=== PATIENT | female | born 1985 | race Caucasian/White ===

== ENCOUNTER 2017-01-24 20:31 | Inpatient (IN) | payer OTHER ==
[~2017-01-24] VITALS: Ht 162.6 cm; Wt 92.5 kg
[2017-01-25] VITALS (10 sets, daily range): BP systolic 88–125; BP diastolic 50–66
--- NOTE | 2017-01-25 09:43 | History & Physical Report ---
Admission Admit Date 01/24/17 Information Source Information Source: Self Reliability: Good History Chief Complaint Labor History of Present Illness 31 yo at 38+4 with c/o regular uterine contractions every 2-6 min since 7 pm. She reports contractions off and on all day. No loss of fluid or vaginal bleeding. Good FM. Patient History 1. Spontaneous onset of labor Social History Negative for tobacco, alcohol, drugs Advance Directive None Medications and Allergies Medications Current Medications Sig/Braeden Start time Last Medication Dose Route Stop Time Status Admin Influenza Virus 0.5 ML 0900 01/26 0900 AC Vaccine IM 01/26 1800 Ephedrine Sulfate 10 MG Q2H PRN 01/25 0730 AC IV Calcium Carbonate 500 MG Q4H PRN 01/25 0230 AC PO Fentanyl/Bupivacaine See Dose TITRATE 01/25 0230 AC HCl Insts (1) EPID Lactated Ringer's 1,000 ML ASDIRECTED 01/25 0230 AC IV Lidocaine HCl 5 ML PRN PRN 01/25 0230 AC TOP Morphine Sulfate 4 MG Q4H PRN 01/25 0230 AC IV Ondansetron HCl 4 MG Q4H PRN 01/25 0230 AC IV Promethazine HCl 12.5 MG Q4H PRN 01/25 0230 AC IV Dose Instructions: (1)Fentanyl/Bupivacaine HCl: ADJUSTMENTS PER ANESTHESIA Allergies Coded Allergies: No Known Drug Allergy (06/04/10) Uncoded Allergies: Med Allergies: NKA Review of Systems Constitutional Denies: Fever, Chills, Sweats, Weakness, Malaise. Gastrointestinal Abdominal Pain. Denies: Nausea, Vomiting. Genitourinary Denies: Dysuria, Frequency, Incontinence. OB - Admission Exam Physical Exam Vitals: Vital Signs Date Time Temp Pulse Resp B/P Pulse O2 O2 Flow FiO2 Ox Delivery Rate 01/24 2224 Room Air HEENT: Normocephalic, atraumatic Heart: Rhythm Normal Lung Sounds: Clear Abdomen: Gravid Extremities: Edema Reflexes: Normal Cervical Dilatation: 4 cm Effacement: 75% Station: -2 Membranes: Intact Amniotic Fluid: Unevaluable Accelerations: Accelerations Present Decelerations: No Decelerations Short Term Variability: Present [facility] Variability: Average (6-25) Contractions on Admission: <5 Minutes Apart Date/Time Contractions Began: 01/24/17 7:00pm Frequency of Contractions: 2-6 min Physical Exam Vital Signs / I&Os Vital Signs Date Time Temp Pulse Resp B/P Pulse O2 O2 Flow FiO2 Ox Delivery Rate 01/25 2224 Room Air I&O 01/25 0000 01/24 1600 01/24 0800 Intake Total Output Total Balance Assessment and Plan Problem List 1. Spontaneous onset of labor Status Acute Onset Date 01/24/17 Plan 1. Expectant managment of labor 2. Allow to SROM as <39 weeks 3. GBS negative 4. May augment with pitocin if needed after SROM
--- NOTE | 2017-01-25 12:52 | Progress Note ---
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 Pushing. Assessment and Plan Problem List 1. Spontaneous onset of labor Status Acute Onset Date 01/24/17 Plan Anticipate . She paper chart for delivery note.
[2017-01-26 00:25] VITALS: BP 92/55
[2017-01-26 07:30] VITALS: BP 99/57
[2017-01-26] MEDS ORDERED: FERROUS SULFAT325 M1 PO (08:47)
[2017-01-26] MEDS ORDERED: IBUPROFEN600 MG PO ×2 (08:47→08:52)
[2017-01-26] MEDS ORDERED: COLACE100 MG PO (08:48)
[2017-01-26] MEDS ORDERED: PRENATAL VITAMINS PO (08:49)
--- NOTE | 2017-01-26 08:51 | Provider's Discharge Care Plan ---
Problem, Goal, Plan Problem List 1. Normal vaginal delivery Instructions: Follow up as needed, Take meds as directed
--- NOTE | 2017-01-26 08:51 | Provider's Discharge Care Plan ---
Problem, Goal, Plan Problem List 1. Normal vaginal delivery Instructions: Follow up as needed, Take meds as directed
--- NOTE | 2017-01-26 08:53 | Progress Note ---
Subjective General PPD #1 s/p at noon yesterday. Denies pain. Reports vaginal bleeding is minimal. Tolerating PO. Ambulating and voiding. Constitutional Denies: Fever, Weakness. ENT Other. Respiratory Denies: Cough. Cardiovascular Denies: Chest Pain. Gastrointestinal Denies: Nausea, Vomiting, Abdominal Pain. Genitourinary Denies: Dysuria. Neurological Denies: Weakness, Numbness. Physical Exam Vital Signs / I&Os Vital Signs Date Time Temp Pulse Resp B/P Pulse O2 O2 Flow FiO2 Ox Delivery Rate 01/26 0800 Room Air 01/26 0730 97.9 82 18 99/57 01/26 0025 Room Air 01/26 0025 98.6 94 16 92/55 01/25 1700 Room Air 01/25 1700 98.2 96 16 88/50 01/25 1345 98.4 80 18 106/66 01/25 1335 88 18 125/57 I&O 01/26 0000 01/25 1600 01/25 0800 Intake Total 2500 Output Total 850 Balance 1650 General Appearance Alert, Oriented X3, No acute distress HEENT Normal exam, Atraumatic Lungs Normal exam Cardiovascular Normal exam Abdomen fundus firm at umbilicus Pelvic laceration without redness or swelling Extremities No cyanosis, No clubbing Assessment and Plan Problem List 1. Normal vaginal delivery Plan Normal exam following vaginal delivery. Patient desires d/c home.
--- NOTE | 2017-01-26 13:00 | NUR ---
Pt, given DC instructions & F/U Infos & prescriptions for Ibuprofen & DSS. Pt indicated understood. All papers turned in. Pt dc'd home with her baby and her accompanied by, Hospital escort via ambulatory done noted.
== END 2017-01-26 15:06 | disposition home or self-care (01) | DRG 560 ==
LOC: OBC SRH 20:31 → OB SRH 20:33 → OBC SRH 01-25 07:30 → OB SRH 01-25 07:30
PROVIDERS: ADMIT Obstetrics & Gynecology
PROC: 10E0XZZ Delivery of Products of Conception, External Approach (ICD-10-PCS; principal; 2017-01-25)
PROC: 0HQ9XZZ Repair Perineum Skin, External Approach (ICD-10-PCS; principal; 2017-01-25)
PROC: 3E0234Z Introduction of Serum, Toxoid and Vaccine into Muscle, Percutaneous Approach (ICD-10-PCS; 2017-01-26)
DX: O70.0 First degree perineal laceration during delivery (principal); Z3A.38 38 weeks gestation of pregnancy; Z37.0 Single live birth; Z23 Encounter for immunization

== ENCOUNTER 2017-01-29 21:59 | Emergency (ER) | payer OTHER ==
[~2017-01-29 21:59] MED LIST: COLACE100 MG PO; FERROUS SULFAT325 M1 PO; IBUPROFEN600 MG PO; PRENATAL VITAMINS PO
--- NOTE | 2017-01-29 23:17 | ED NURSING NOTES ---
Clinical Report - Nurses [place] [address] [place] [address] 01/29/2017 21:58 [id number] Triage time 22:Jan 29 2017. Acuity: LEVEL 3. Chief Complaint: (swelling of legs and feet ()). LEXI COMA SCORE: [place] Coma Scale: 15- eyes open spontaneously (4); best verbal response- oriented x 4 (5); best motor response- obeys commands (6). --22:11 Kell Burger 22:06 01/29/17. BP: 112/67. HR: 69. RR: 20. O2 saturation: 97% on room air. Temp: 97.7 F (oral). Pain level now: 0/10. --22:11 Kell Burger. Weight: 83.9 kg estimated. Height/Length: 64 inches Per Patient. BMI: 31.8. --22:09 Kell Burger. Medications None. --22:08 Kell Burger. Medication/allergy information source: the patient. --22:11 Kell Burger. Allergies No Known Drug Allergy. --22:08 Kell Burger. History Arrived by private vehicle. Historian: patient. Accompanied by family. This started today. ( Patient reports she gave to her child on Thursday. She reports today she noticed swelling legs and feet. She denies pain. She denies any shortness of breath. She denies any swelling with her previous pregnancies.). PAST MEDICAL HX: Immunizations: up-to-date. The patient is lactating. SOCIAL HX: Never smoker. No alcohol use. No infectious disease exposure. ABUSE ASSESSMENT: No report of abuse. FALL RISK ASSESSMENT: Fall risk assessment completed. No fall risk identified. NUTRITIONAL RISK ASSESSMENT: The nutritional risk assessment revealed no deficiencies. FUNCTIONAL ASSESSMENT: Functional assessment: no impairments noted. LEARNING NEEDS ASSESSMENT: The learning needs assessment revealed no barriers. SKIN INTEGRITY ASSESSMENT: Skin integrity risk assessment completed. No skin integrity risk identified. --22:11 Kell Burger. PROBLEMS: no known problems. ADDITIONAL SURGERIES: no known surgeries. Interventions ID band on patient. To treatment room. --22:11 Kell Burger. PHYSICAL ASSESSMENT Ambulatory to room. Patient gowned. GENERAL / NEURO / PSYCH: Alert. Oriented X 4. Appears in no acute distress. HEENT: Pupils equal, round and reactive to light. Mucous membranes are pink. RESPIRATORY: Respirations not labored. CVS: Normal sinus rhythm noted. Pulses within normal limits. GI / : Abdomen soft. EXTREMITIES: Bilateral 2+ pitting edema of the lower extremities involving both feet and both ankles. Capillary refill is less than 2 seconds in the extremities. Extremities exhibit normal ROM. SKIN: Skin is warm and dry. --22:12 Kell Burger. NURSING PROGRESS NOTES Pulse oximeter and NIBP monitor placed on patient; monitor alarms on. Patient gowned. Reassurance given to the patient. Two patient identifiers checked. Call light placed in reach. Side rails up x 1. Bed placed in lowest position. Brakes of bed on. Patient ready for evaluation- chart flagged and ED physician notified. --22:13 Kell Burger ( Light dimmed, patient has no complaints at this time). --23:15 Kell Burger 23:15 01/29/17. BP: 101/64. HR: 68. RR: 20. O2 saturation: 98% on room air. --23:15 Kell Burger. DISPOSITION / DISCHARGE 23:25 01/29/17. BP: 101/64. HR: 62. RR: 16. O2 saturation: 98% on room air. Temp: 98.7 F (oral). Pain level now: 0/10. --00:05 Keaton Cabrera R.N. Departure time: 2329. --00:06 Keaton Cabrera RElda. 23:30. Condition at departure: unchanged. No learning barriers present. Discharge instructions provided and reviewed with the patient. Treatments reviewed (Elevate your lower extremities when ever you can on pillows). Reviewed referral to family practice for followup. Patient verbalized understanding. Written instructions provided in Syriac. The patient was discharged by the physician. She was discharged home and accompanied by social science manager. She left the Emergency Department ambulatory and via private vehicle. Electric Organ Inspector And Repairer driving. --00:08 Keaton Cabrera R.N. Locked/Released at 01/30/2017 0:09 by Keaton Cabrera R.N.
--- NOTE | 2017-01-29 23:17 | ED NURSING NOTES ---
Clinical Report - Nurses [place] [address] [place] [address] 01/29/2017 21:58 [id number] TRI[facility] Triage time 22:Jan 29 2017. Acuity: LEVEL 3. Chief Complaint: (swelling of legs and feet ()). LEXI COMA SCORE: [place] Coma Scale: 15- eyes open spontaneously (4); best verbal response- oriented x 4 (5); best motor response- obeys commands (6). --22:11 Kell Burger 22:06 01/29/17. BP: 112/67. HR: 69. RR: 20. O2 saturation: 97% on room air. Temp: 97.7 F (oral). Pain level now: 0/10. --22:11 Kell Burger. Weight: 83.9 kg estimated. Height/Length: 64 inches Per Patient. BMI: 31.8. --22:09 Kell Burger. Medications None. --22:08 Kell Burger. Medication/allergy information source: the patient. --22:11 Kell Burger. Allergies No Known Drug Allergy. --22:08 Kell Burger. History Arrived by private vehicle. Historian: patient. Accompanied by family. This started today. ( Patient reports she gave to her child on Thursday. She reports today she noticed swelling legs and feet. She denies pain. She denies any shortness of breath. She denies any swelling with her previous pregnancies.). PAST MEDICAL HX: Immunizations: up-to-date. The patient is lactating. SOCIAL HX: Never smoker. No alcohol use. No infectious disease exposure. ABUSE ASSESSMENT: No report of abuse. FALL RISK ASSESSMENT: Fall risk assessment completed. No fall risk identified. NUTRITIONAL RISK ASSESSMENT: The nutritional risk assessment revealed no deficiencies. FUNCTIONAL ASSESSMENT: Functional assessment: no impairments noted. LEARNING NEEDS ASSESSMENT: The learning needs assessment revealed no barriers. SKIN INTEGRITY ASSESSMENT: Skin integrity risk assessment completed. No skin integrity risk identified. --22:11 Kell Burger. PROBLEMS: no known problems. ADDITIONAL SURGERIES: no known surgeries. Interventions ID band on patient. To treatment room. --22:11 Kell Burger. PHYSICAL ASSESSMENT Ambulatory to room. Patient gowned. GENERAL / NEURO / PSYCH: Alert. Oriented X 4. Appears in no acute distress. HEENT: Pupils equal, round and reactive to light. Mucous membranes are pink. RESPIRATORY: Respirations not labored. CVS: Normal sinus rhythm noted. Pulses within normal limits. GI / : Abdomen soft. EXTREMITIES: Bilateral 2+ pitting edema of the lower extremities involving both feet and both ankles. Capillary refill is less than 2 seconds in the extremities. Extremities exhibit normal ROM. SKIN: Skin is warm and dry. --22:12 Kell Burger. NURSING PROGRESS NOTES Pulse oximeter and NIBP monitor placed on patient; monitor alarms on. Patient gowned. Reassurance given to the patient. Two patient identifiers checked. Call light placed in reach. Side rails up x 1. Bed placed in lowest position. Brakes of bed on. Patient ready for evaluation- chart flagged and ED physician notified. --22:13 Kell Burger ( Light dimmed, patient has no complaints at this time). --23:15 Kell Burger 23:15 01/29/17. BP: 101/64. HR: 68. RR: 20. O2 saturation: 98% on room air. --23:15 Kell Burger. DISPOSITION / DISCHARGE 23:25 01/29/17. BP: 101/64. HR: 62. RR: 16. O2 saturation: 98% on room air. Temp: 98.7 F (oral). Pain level now: 0/10. --00:05 Keaton Cabrera R.N. Departure time: 2329. --00:06 Keaton Cabrera RElda. 23:30. Condition at departure: unchanged. No learning barriers present. Discharge instructions provided and reviewed with the patient. Treatments reviewed (Elevate your lower extremities when ever you can on pillows). Reviewed referral to family practice for followup. Patient verbalized understanding. Written instructions provided in Thai. The patient was discharged by the physician. She was discharged home and accompanied by ehs manager. She left the Emergency Department ambulatory and via private vehicle. Hard Hat Diver driving. --00:08 Keaton Cabrera R.N. Locked/Released at 01/30/2017 0:09 by Keaton Cabrera R.N.
--- NOTE | 2017-01-29 23:17 | ED CLINICAL REPORT ---
Clinical Report - Physicians/Mid Levels [facility] [address] [place] [address] 01/29/2017 21:58 Patient: DEV MONTERROSO Time Seen: 22:07. Arrived- By private vehicle. Historian- patient. HISTORY OF PRESENT ILLNESS Chief Complaint: LOWER EXTREMITY SWELLING. This started about 4 days ago and is still present. Severity is described as being moderate. The quality is noted to be dull. Not worsened by anything and relieved by anything. Symptoms located in the area of the right ankle, right foot, left foot and left ankle. The patient has had swelling, but not had redness. No difficulty walking. No bladder dysfunction, bowel dysfunction, sensory loss or motor loss. Patient denies an injury. Similar symptoms previously: None. Recent medical care: The patient was seen recently by a health care provider. ( Pt gave via 5 days ago. She did not notice any swelling during , and states she has not had swelling after giving previously. Pt had no problems during the --no known heart problems. Pt denies shortness of breath. No h/o DVT.). REVIEW OF SYSTEMS No cough, chest pain, difficulty breathing, fever or skin rash. No enlarged lymph nodes, neck pain, back pain, headache or blurred vision. No sore throat, abdominal pain, vomiting, diarrhea or black stools. No difficulty with urination or bloody stools. All systems otherwise negative, except as recorded above. PAST HISTORY Problems: no known problems. Additional Surgeries: no known surgeries. Medications: None. Allergies: No Known Drug Allergy. SOCIAL HISTORY Never smoker. No alcohol use or drug use. ADDITIONAL NOTES The nursing notes have been reviewed. PHYSICAL EXAM Vital Signs: 01/29/2017 22:06 BP: 112/67. HR: 69. RR: 20. O2 saturation: 97%. Temp: 97.7 F. Pain level now: 0/10. Have been reviewed. Appearance: Alert. Oriented X3. No acute distress. Eyes: Pupils equal, round and reactive to light. Eyes normal inspection. ENT: Nose normal. Neck: Normal inspection. CVS: Normal heart rate and rhythm. Heart sounds normal. Respiratory: No respiratory distress. Breath sounds normal. Abdomen: Soft and nontender. No organomegaly. Back: Normal inspection. ROM normal. Skin: Skin intact. Skin warm and dry. Normal skin color. Normal skin turgor. Extremities: Lower extremities exhibit normal ROM. Bilateral mild non-pitting edema of the lower extremities involving both feet, both ankles and both lower legs. Extremities otherwise negative. Gait: Normal gait. Neuro: No motor deficit. No sensory deficit. (Grossly oriented.). LABS, X-RAYS, AND EKG Pulse Oximetry: 01/29/2017 22:06 O2 saturation: 97%. (FIO2 - room air). Interpretation: normal. PROGRESS AND PROCEDURES Course of Care: D/w pt: It is common to have some swelling after giving , and this will resolve on its own. Pt's blood pressure is normal, she had a healthy , and there are no signs or sx otherwise of CHF or DVT. No emergent condition identified. Patient counseled in person regarding the patient's stable condition, diagnosis and need for follow-up. Concerns were addressed. Old medical records reviewed. Disposition: Discharged. Condition: stable. CLINICAL IMPRESSION Bilateral pedal edema (post-). INSTRUCTIONS Elevate affected areas above chest level as needed and until better. (There is no evidence of any of the serious causes of leg swelling. It is very common for swelling to occur in the post- period. This will subside over the next week.). Warnings: GENERAL WARNINGS: Return or contact your physician immediately if your condition worsens or changes unexpectedly, if not improving as expected, or if other problems arise. Follow-up: Follow up with your doctor. Call for the next available appointment. Understanding of the discharge instructions verbalized by patient. (Electronically signed by Serenity Potts MD 02/06/2017 7:33)
--- NOTE | 2017-02-06 07:33 | ED MAR SUMMARY ---
..... Medication Administration Record [facility] [address], [place] [id number] Patient: OLGA LAKEOSDEV Visit ID: [id number] 31y, F Weight: 83.9 kg Height/Length: 64 in BMI: 31.8 ALLERGIES: No Known Drug Allergy
--- NOTE | 2017-02-06 07:33 | ED MAR SUMMARY ---
..... Medication Administration Record [facility] [address] [place], [place] [id number] Patient: OLGA LAKEOSDEV Visit ID: [id number] 31y, F Weight: 83.9 kg Height/Length: 64 in BMI: 31.8 ALLERGIES: No Known Drug Allergy
--- NOTE | 2017-02-06 07:33 | ED DISCHARGE INSTRUCTIONS ---
Patient: DEV MONTERROSO General Instructions [facility] VisitID: [id number] [address] [place] [address] 31y, F Registration Date/Time: 01/29/2017 Bilateral pedal edema (post-). INSTRUCTIONS Elevate affected areas above chest level as needed and until better. (There is no evidence of any of the serious causes of leg swelling. It is very common for swelling to occur in the post- period. This will subside over the next week.). Warnings: GENERAL WARNINGS: Return or contact your physician immediately if your condition worsens or changes unexpectedly, if not improving as expected, or if other problems arise. Follow-up: Follow up with your doctor. Call for the next available appointment. Understanding of the discharge instructions verbalized by patient. (Electronically signed by Serenity Potts MD 02/06/2017 7:33)
--- NOTE | 2017-02-06 07:33 | ED DISCHARGE INSTRUCTIONS ---
Patient: DEV MONTERROSO General Instructions [facility] VisitID: [id number] [address] [place] [address] 31y, F Registration Date/Time: 01/29/2017 Bilateral pedal edema (post-). INSTRUCTIONS Elevate affected areas above chest level as needed and until better. (There is no evidence of any of the serious causes of leg swelling. It is very common for swelling to occur in the post- period. This will subside over the next week.). Warnings: GENERAL WARNINGS: Return or contact your physician immediately if your condition worsens or changes unexpectedly, if not improving as expected, or if other problems arise. Follow-up: Follow up with your doctor. Call for the next available appointment. Understanding of the discharge instructions verbalized by patient. (Electronically signed by Serenity Potts MD 02/06/2017 7:33)
--- NOTE | 2017-02-06 07:33 | ED MED RECONCILIATION SUMMARY ---
Patient: OLGA SCHWARTZ DEV Medication Reconciliation Report [facility] VisitID: [id number] [address] [place] [address] 31y, F Registration Date/Time: 01/29/2017 Weight: 83.9 kg Height/Length: 64 in. BMI: 31.8 ALLERGIES: No Known Drug Allergy The patient's Home Medications are listed below: NONE. The source(s) of the original Home Medication information: patient The following Medications were given to the patient in the Emergency Department: None. The following Medications were prescribed to the patient: None.
--- NOTE | 2017-02-06 07:33 | ED MED RECONCILIATION SUMMARY ---
Patient: OLGA SCHWARTZ DEV Medication Reconciliation Report [facility] VisitID: [id number] [address] [place] [address] 31y, F Registration Date/Time: 01/29/2017 Weight: 83.9 kg Height/Length: 64 in. BMI: 31.8 ALLERGIES: No Known Drug Allergy The patient's Home Medications are listed below: NONE. The source(s) of the original Home Medication information: patient The following Medications were given to the patient in the Emergency Department: None. The following Medications were prescribed to the patient: None.
== END 2017-01-29 23:30 | disposition home or self-care (01) ==
LOC: ED SRH 21:59
DX: O12.05 Gestational edema, complicating the puerperium (principal)